=== PATIENT | male | born 1950 | race Caucasian/White ===

== ENCOUNTER 2021-10-03 08:03 | Inpatient (IN) ==
--- NOTE | 2021-09-12 11:50 | PAT Medication Instructions ---
Medication Instructions Date of Service September 12, 2021 Home Medications alprazolam 0.5 mg tablet (Xanax) 0.5 mg PO HS atorvastatin 80 mg tablet (Lipitor) 80 mg PO HS citalopram 20 mg tablet (Celexa) 20 mg PO HS coQ10 (ubiquinol) 200 mg capsule 200 mg PO QAM lisinopril 10 mg tablet 10 mg PO HS mirtazapine 30 mg tablet 30 mg PO HS multivitamin 1 tab PO QAM ropinirole 2 mg tablet 2 mg PO HS rosuvastatin 40 mg tablet (Crestor) 40 mg PO HS tamsulosin 0.4 mg capsule 0.4 mg PO HS STOP taking 2 weeks before surgery coQ10 (ubiquinol) 200 mg capsule 200 mg PO QAM DO NOT take the morning of surgery multivitamin 1 tab PO QAM Take evening before surgery alprazolam 0.5 mg tablet (Xanax) 0.5 mg PO HS atorvastatin 80 mg tablet (Lipitor) 80 mg PO HS citalopram 20 mg tablet (Celexa) 20 mg PO HS lisinopril 10 mg tablet 10 mg PO HS mirtazapine 30 mg tablet 30 mg PO HS ropinirole 2 mg tablet 2 mg PO HS rosuvastatin 40 mg tablet (Crestor) 40 mg PO HS tamsulosin 0.4 mg capsule 0.4 mg PO HS OTHERWISE NOTHING TO EAT OR DRINK AFTER MIDNIGHT: Other Notes If you have any questions please call us at [phone] or [phone] or [phone] or [phone]
--- NOTE | 2021-09-20 09:31 | Anesthesiology Consultation ---
Date of Service September 20, 2021 Assessment & Plan (1) Encounter for pre-operative examination: Chart Review Chart Review: Acceptable Risk for Surgery (pending preop Covid testing results ) and Patient seen in Pre Admission Testing Pt initially scheduled for surgery 09/30/21- currently surgery postponed due to Covid surge- no new surgery date at this time. Surgeon's office will follow up with patient when able to be rescheduled. Pt voices understanding. Pt did have labs done in PAT- willing to get repeated if surgery rescheduled after 60 days. Per PAT appt on 09/20/21, patient denies any recent travel or large group activities. No known Covid positive contacts or Covid related symptoms. No known Covid infection in the past 90 days. Pt is fully vaccinated for Covid. Preop Covid testing will be done 2-4 days prior to surgery date when rescheduled = will await results. Educated on importance of self quarantining, social distancing and wearing mask in public for the patient one week prior to surgery and after Covid testing done Teaching & Discussion Pre-Anesthesia Teaching/Discussion Notes: Instructed NPO after midnight before surgery,except medications with 15 cc of water. Medication instructions provided according to the PAT guidelines. History Surgery Operation Date: 09/30/21 10:05 Proposed Procedures p L2-S1 Decompression and Fusion - Rex Elizondo DO Height/Weight Height: 5 ft 9 in Weight: 82.8 kg Allergies Allergy/AdvReac Type Severity Reaction Status Date / Time No Known Allergies Allergy Verified 09/12/21 08:38 Medications Home Medications Medication Instructions Recorded Confirmed Last Taken alprazolam 0.5 mg tablet (Xanax) 0.5 mg PO HS 09/12/21 09/12/21 Unknown atorvastatin 80 mg tablet (Lipitor) 80 mg PO HS 09/12/21 09/12/21 Unknown citalopram 20 mg tablet (Celexa) 20 mg PO HS 09/12/21 09/12/21 Unknown coQ10 (ubiquinol) 200 mg capsule 200 mg PO QAM 09/12/21 09/12/21 Unknown lisinopril 10 mg tablet 10 mg PO HS 09/12/21 09/12/21 Unknown mirtazapine 30 mg tablet 30 mg PO HS 09/12/21 09/12/21 Unknown multivitamin 1 tab PO QAM 09/12/21 09/12/21 Unknown ropinirole 2 mg tablet 2 mg PO HS 09/12/21 09/12/21 Unknown rosuvastatin 40 mg tablet (Crestor) 40 mg PO HS 09/12/21 09/12/21 Unknown tamsulosin 0.4 mg capsule 0.4 mg PO HS 09/12/21 09/12/21 Unknown Past Medical History Medical History Anxiety and depression BPH (benign prostatic hyperplasia) Degenerative disc disease Hx of skin cancer, basal cell S/p removed Hyperlipidemia Hypertension Post traumatic stress disorder Restless leg syndrome Stable with medication Sleep apnea MILD/NO DEVICE Spinal stenosis Exercise / Class Metabolic Activity II 4-5 Yardwork/Stairs/Walk up hill (one flight of stairs- no chest pain or SOB ) Past Family History Family History Father Family hx of colon cancer Past Surgical History Surgical History Family history of reaction to anesthesia DAUGHTER>NAUSEA History of colonoscopy History of esophagogastroduodenoscopy (EGD) History of repair of rotator cuff RT SIDE + BICEP TENDON REPAIR (X 3) LEFT SIDE History of tonsillectomy and adenoidectomy Hx of vasectomy S/P LASIK surgery of both eyes [place] teeth removed Past Anesthesia History No Hx of Anesthesia Complications and No Family Hx of Anesthesia Complications (with exception to daughter- PONV ) History of PONV No Hx of PONV and No Hx of Motion Sickness Social History Smoking Status: Former smoker tobacco type: cigarettes Do You Dip or Chew Tobacco: No Smoking End Date: 1979 Hx Alcohol Use: Yes Alcohol type: beer and hard liquor alcohol intake frequency: a few times a month substance use type: does not use Review of Systems Patient denies chest pain, shortness of breath, dyspnea on exertion, reflux, cough, wheezing, palpitations. No hx of seizures, stroke, [place]. No hx of blood clots or blood transfusions Physical Exam Vital Signs VITALS BP 127/76 P 70 TEMP 97.6 SP02 95% RESP 16 Constitutional no acute distress ENMT Mouth: no TMJ clicking Thyromental Distance: > or= 3.5 Finger Breadths (4.0) Mallampati Class: II Permanent bridge on top front and bottom side Neck neck extension not limited Respiratory normal respiratory effort; no respiratory distress Auscultation: lungs clear to auscultation bilaterally; no wheezes Cardiovascular Rate/Rhythm: regular rate and regular rhythm Heart Sounds: no murmur Vessels: no carotid bruit Musculoskeletal Spine: no pain with cervical ROM Extremities: extremities normal to inspection Psychiatric Orientation: alert Lab Results Anesthesia Preop Results Results Anesthesia Widget: WBC 3.57 K/uL (4.8-10.8) L 09/20/21 Hgb 14.9 g/dL (14.0-18.0) 09/20/21 Hct 43.1 % (42-52) 09/20/21 Plt 155 K/uL (130-400) 09/20/21 Na 137 mmol/L (136-145) 09/20/21 K 4.4 mmol/L (3.5-5.1) 09/20/21 Cl 107 mmol/L (98-107) 09/20/21 CO2 26 mmol/L (21-32) 09/20/21 BUN 24 mg/dl (7-18) H 09/20/21 Creat 1.24 mg/dl (0.6-1.4) 09/20/21 Glucose Level 101 mg/dl (70-99) H 09/20/21 PT 10.1 Seconds (9.0-12.0) 09/20/21 PTT 27.3 Seconds (21.0-31.0) 09/20/21 INR 1.0 (0.9-1.1) 09/20/21 Urine Color Yellow 09/20/21 Urine Appearance Clear (Clear) 09/20/21 Urine pH 5.5 (4.5-7.5) 09/20/21 Urine Specific [place] 1.017 (1.000-1.030) 09/20/21 Urine Protein Negative (Negative) 09/20/21 Urine Glucose (UA) Negative (Negative) 09/20/21 Urine Ketones Negative (Negative) 09/20/21 Urine Blood Negative (Negative) 09/20/21 Urine Nitrite Negative (Negative) 09/20/21 Urine Bilirubin Negative (Negative) 09/20/21 Urine Urobilinogen Negative (Negative) 09/20/21 Urine Leukocyte Esterase Trace (Negative) H 09/20/21 Urine WBC (Auto) 1-5 /hpf (0-5) 09/20/21 Urine RBC (Auto) 0-4 /hpf (0-4) 09/20/21 Urine Hyaline Casts (Auto) 0 /lpf (0-5) 09/20/21 Urine Epithelial Cells (Auto) 0-5 /lpf (0-5) 09/20/21 Urine Bacteria (Auto) Negative (Negative) 09/20/21 Blood Type O Negative 09/20/21 Antibody Screen NEGATIVE 09/20/21 Testing Electrocardiogram Date: 09/20/21 Findings: + NSR @ (65bpm) Normal EKG per cardio Chest X-Ray Date: 09/20/21 Findings: + NAD
[~2021-10-03 08:03] MED LIST: ACETAMINOPHEN 500 MG TAB PO SCH; CeleBREX 200 MG CAP PO SCH; GABAPENTIN 300 MG CAP PO SCH; LR 15ML/HR IV SCH; ceFAZolin 2000MG 2,000 MG/15 ML SYR IV SCH
[2021-10-03] MEDS ORDERED: ONDANSETRON INJ 2 MG/ML 2 ML VIAL ONE (09:08)
[2021-10-03] MEDS ORDERED: DEXAMETHASONE SOD INJ 4 MG/ML VIAL ONE (09:08)
[2021-10-03] MEDS ORDERED: PROPOFOL IV EMULSION 10 MG/ML 20 ML VIAL IV ONE (09:08)
[2021-10-03] MEDS ORDERED: LIDOCAINE 2% 2 ML VIAL/AMP(20MG/ML) INFIL ONE (09:08)
[2021-10-03] MEDS ORDERED: fentaNYL citrate 100 MCG/2 ML VIAL ONE ×2 (09:09→13:47)
[2021-10-03] MEDS ORDERED: MIDAZOLAM HCL 1 MG/ML 2ML VIAL ONE (09:09)
[2021-10-03] MEDS ORDERED: HYDROmorphone INJ 1 MG/ML SYRINGE IV PRN ×2 (09:33→15:57)
[2021-10-03] MEDS ORDERED: ATROPINE SULFATE 0.1 MG/ML 10ML SYR IV PRN (09:33)
[2021-10-03] MEDS ORDERED: ePHEDrine sulfate 50 MG/ML AMP IV PRN (09:33)
[2021-10-03] MEDS ORDERED: ONDANSETRON INJ 2 MG/ML 2 ML VIAL IV PRN ×2 (09:33→15:57)
--- NOTE | 2021-10-03 09:45 | History & Physical Bridge Note ---
Date of Service October 03, 2021 History & Physical Bridge Note I have examined the patient, reviewed the History & Physical and in the interval since the performance of the History & Physical I have noted the following changes of clinical significance: no changes noted
--- NOTE | 2021-10-03 09:47 | History & Physical Report ---
Date of Service October 03, 2021 Assessment & Plan (1) Neurogenic claudication due to lumbar spinal stenosis: Plan: L2-S1 decompression fusion History of Present Illness Chief Complaint: Back and bilateral leg pain Primary Care Provider: Renuka Khoury This is a 70-year-old male who presents with chronic system back and right leg pain. Failing course of nonoperative care is here for surgical invention. Allergies Allergy/AdvReac Type Severity Reaction Status Date / Time No Known Allergies Allergy Verified 10/03/21 08:42 Home Medications Medication Instructions Recorded Confirmed Type alprazolam 0.5 mg tablet (Xanax) 0.5 mg PO HS 09/12/21 10/03/21 History atorvastatin 80 mg tablet (Lipitor) 80 mg PO HS 09/12/21 10/03/21 History citalopram 20 mg tablet (Celexa) 20 mg PO HS 09/12/21 10/03/21 History coQ10 (ubiquinol) 200 mg capsule 200 mg PO QAM 09/12/21 10/03/21 History lisinopril 10 mg tablet 10 mg PO HS 09/12/21 10/03/21 History mirtazapine 30 mg tablet 30 mg PO HS 09/12/21 10/03/21 History multivitamin 1 tab PO QAM 09/12/21 10/03/21 History ropinirole 2 mg tablet 2 mg PO HS 09/12/21 10/03/21 History rosuvastatin 40 mg tablet (Crestor) 40 mg PO HS 09/12/21 09/12/21 History tamsulosin 0.4 mg capsule 0.4 mg PO HS 09/12/21 09/12/21 History Past Med/Surg History Medical History Anxiety and depression BPH (benign prostatic hyperplasia) Degenerative disc disease Hx of skin cancer, basal cell S/p removed Hyperlipidemia Hypertension Post traumatic stress disorder Restless leg syndrome Stable with medication Sleep apnea MILD/NO DEVICE Spinal stenosis Surgical History Family history of reaction to anesthesia DAUGHTER>NAUSEA History of colonoscopy History of esophagogastroduodenoscopy (EGD) History of repair of rotator cuff RT SIDE + BICEP TENDON REPAIR (X 3) LEFT SIDE History of tonsillectomy and adenoidectomy Hx of vasectomy S/P LASIK surgery of both eyes [place] teeth removed Family History Father Family hx of colon cancer Social History Smoking Status: Former smoker Smoking End Date: 1979; Second Hand Exposure: No; Do You Dip or Chew Tobacco: No; Hx Alcohol Use: Yes Alcohol type: beer and hard liquor Preferred Language: [place] Tearoom Host Required: No Beliefs That Will Affect Care: None Current Living Situation: Spouse Feels Safe at Home: Yes Safety Concerns: Feels Safe At This Time Assistive Devices: Glasses and Hearing Aid - Bilateral Assistive Devices Comment: READING GLASSES, HEARING AIDS ONLY WHEN WORKING Physical Exam Physical Exam: Patient is alert and oriented Heart regular in rhythm Lungs clear Results & Data ([facility]) Vital Signs (Past 12 Hours) Vital Signs Temp Pulse Resp BP Pulse Ox 10/03/21 08:44 36.5 C 71 18 121/75 99
[2021-10-03] MEDS ORDERED: BUPIVACAINE 0.5 % 5 MG/1 ML MPF 30ML VIAL ONE (10:07)
[2021-10-03] MEDS ORDERED: EPINEPHrine INJ 1 MG/ML AMP ONE (10:07)
[2021-10-03] MEDS ORDERED: FLOSEAL HEMOSTATIC MATRIX 10ML TOP ONE (10:59)
[2021-10-03] MEDS ORDERED: KETAMINE 50 MG/5 ML SYRINGE ONE (11:27)
[2021-10-03] MEDS ORDERED: PHENYLEPHRINE HCL 10 MG/ML VIAL ONE (12:36)
[2021-10-03] MEDS ORDERED: NEOSTIGMINE METHYLSULFATE 1 MG/ML 10ML VIAL ONE (12:36)
[2021-10-03] MEDS ORDERED: PHENYLEPHRINE 100MCG/ML 5ML SYR ONE (12:36)
[2021-10-03] MEDS ORDERED: ROCURONIUM BROMIDE 10 MG/ML 5 ML VIAL IV ONE (12:36)
[2021-10-03] MEDS ORDERED: GLYCOPYRROLATE 0.2 MG/ML VIAL ONE (12:36)
[2021-10-03] MEDS ORDERED: ePHEDrine sulfate 50 MG/ML SYR ONE (12:36)
[2021-10-03] MEDS ORDERED: ALBUMIN HUMAN 5% 12.5 GM/250 ML VIAL IV ONE (13:44)
--- NOTE | 2021-10-03 13:47 | Operative Report ---
Post Operative Report Pre & Post Diagnosis Operation Date: 10/03/21 10:05 Pre-Op Diagnosis: Spinal Stenosis, Lumbar Region with Neurogenic Claudication Post-Op Diagnosis: Spinal Stenosis, Lumbar Region with Neurogenic Claudication I identified the patient and participated in the time-out.: Yes Procedure Operation Date: 10/03/21 10:05 Actual Procedures #1 lumbar decompression bilateral medial facetectomies and foraminotomies L1-L2, L2-L3, L3-L4, L4-5 and L5-S1. #2 posterior spinal fusion L1-S1. #3 placed posterior segmental instrumentation L1-S1. #4 interbody fusion L3-L4 L4-L5 per #5 placement peek cage 12 x 26 mm at L3-L4 and 10 x 26 mm at L4-L5. #6 placement locally harvested morselized autograft in the posterior gutters. #7 placement infuse collagen sponge, and master graft in the posterior lateral gutters and I factor interbody space. Surgeon Rex Elizondo, DO Cad [employer] Programmer Colby Jama Estimated Blood Loss 700 Findings Consistent with Post-Op Diagnosis Specimens None Indications This is a 70-year-old male who presents with above-mentioned diagnosis after failing course of nonoperative care is here for the above-mentioned seizure. Description of Procedure Patient was met with identified informed consent obtained. Patient was then taken to the operative suite underwent a patient placed in a prone position the Dante table atop Roberto frame. All bony prominences well-padded eyes inspected to ensure no external pressure placed upon the. This point the lumbar spine was prepped and draped in a normal sterile fashion. Sharp dissection with the assistance of Bovie cautery was performed down to and exposing the lamina and transverse processes of L1-L2 L3-L4-L5 and sacral ala bilaterally. From a caudal cephalad fashion complete laminectomy of L5 L4 L3 L2 partial laminectomy L1 was performed including bilateral medial facetectomies and foraminotomies addressing severe spinal stenosis. Pedicle screws were then placed in L1-L2 L3-L4-L5 and S1 bilaterally with assistance of fluoroscopy and the properly sized jose elias placed. Bilateral transforaminal portion left complete discectomy of L for L5 was performed endplates curetted to subcortical bleeding bone and a 10 x 26 mm peek cage with I factor tapped in position. Then proceeded to L3-L4 and again by way of a transforaminal approach on the left complete discectomy was performed endplates curetted to subcortical bleeding bone and a 12 x 26 mm peek cage filled with I factor tapped in position. The rods were then locked in final position bilaterally. The transverse processes of L1-L2 L3-L4-L5 and the sacral ala were burred to subcortical bleeding bone. Infuse collagen sponge, and master graft local autograft was placed in the posterior lateral gutters. 15 round FABIANA drain inserted. The incision was then closed with 1 Vicryl in the fascia 2-0 Vicryl subcutaneously and 4 Monocryl for final skin closure. Steri- Strips dressings placed. Patient will continue PACU stable condition. Please note spinal cord monitoring was last that the procedure no changes noted. Lastly Colby Jama was present at the entire surgery The patient positioning complex portions of the surgery and final skin closure. I attest to the content of the Intraoperative Record and any orders documented therein. Any exceptions are noted below.
--- NOTE | 2021-10-03 14:09 | Fluoroscopy Report ---
FL lumbar spine 2-3V HISTORY: 70 years-old Male L2-S1 DECOMPRESSION/FUSION/INTERBODY COMPARISON: Chest radiographs 09/20/2021 TECHNIQUE: 4 spot fluoroscopic images of the lumbar spine were obtained utilizing 60.8 seconds fluoro scopy time FINDINGS: Posterior interbody jose elias and screw fusion hardware is noted at what appears to be the L1-S1 levels wit h discectomy changes at L3-L4 and L4-L5. The hardware appears intact. Multilevel spondylitic spurring . No definite expected opaque foreign body identified. No acute fracture seen. IMPRESSION: Fluoroscopic assistance as above. ACT 112: Negative or not required by law. The above report was generated using voice recognition software. It may contain grammatical, syntax o r spelling errors. Electronically signed by: Bjorn Smith M.D. 10/03/2021 2:07 PM
[2021-10-03] MEDS: fentaNYL citrate 100 MCG/2 ML VIAL IV PRN ×3 (14:39→15:06)
--- NOTE | 2021-10-03 15:03 | Anesthesiology Progress Note ---
Date of Service October 03, 2021 Anesthesia Post Procedure Vital Signs Vital Signs: Temp Pulse Pulse Resp BP Pulse Ox 10/03/21 14:55 97.9 F 90 20 94/67 L 95 10/03/21 14:45 81 20 101/64 98 10/03/21 14:35 75 18 110/67 99 10/03/21 14:25 80 18 107/61 98 10/03/21 14:18 97.3 F L 86 16 113/72 99 10/03/21 08:44 97.7 F 71 18 121/75 99 Pain Intensity Lower Back: Pain Intensity: 4 Transfer of Care Handoff Completed per policy Notes Mental Status: alert / awake / arousable and participated in evaluation Patient Amnestic to Procedure: Yes Nausea / Vomiting: adequately controlled Pain: adequately controlled Airway Patency, RR, SpO2: stable & adequate BP & HR: stable & adequate Hydration State: stable & adequate Anesthetic Complications: no major complications apparent and Pt Satisfied with anesthetic care
[2021-10-03] MEDS ORDERED: traMADol HCL 50 MG TABLET PO PRN (15:57)
[2021-10-03] MEDS ORDERED: DO NOT ADMINISTER PNEUMOCOCCAL VACCINE PRN (15:57)
[2021-10-03] MEDS ORDERED: ACETAMINOPHEN 1,000 MG/100 ML VIAL IV PRN (15:57)
[2021-10-03] MEDS ORDERED: diphenhydrAMINE Capsule 25 MG CAP PO PRN (15:57)
[2021-10-03] MEDS ORDERED: ALUMINUM/MAGNESIUM SUSP 30 ML UDC PO PRN (15:57)
[2021-10-03] MEDS ORDERED: FAMOTIDINE 20 MG TAB PO PRN (15:57)
[2021-10-03] MEDS ORDERED: SOD PHOSPHATE/SOD BIPHOSPHATE ENEMA 132 ML BTL PR PRN (15:57)
[2021-10-03] MEDS ORDERED: bisacodyL 10 MG SUPP PR PRN (15:57)
[2021-10-03] MEDS ORDERED: ONDANSETRON 4 MG OD TAB PO PRN (15:57)
[2021-10-03] MEDS ORDERED: LORazepam 0.5 MG/1 ML VIAL IV PRN (15:57)
[2021-10-03] MEDS ORDERED: MAGNESIUM HYDROXIDE SUSP 30 ML UDC PO PRN (15:57)
[2021-10-03] MEDS ORDERED: LORazepam 0.5 MG TAB PO PRN (15:57)
[2021-10-03] MEDS ORDERED: hydrOXYzine HCl 25 MG TAB PO PRN (15:57)
[2021-10-03] MEDS ORDERED: HYDROmorphone INJ 0.5 MG/0.5 ML SYR IV PRN (15:57)
[2021-10-03] MEDS ORDERED: PROMETHAZINE HCL 12.5 MG in SODIUM CHLORIDE 0.9% 50 ML IV PRN (15:57)
[2021-10-03] MEDS ORDERED: ACETAMINOPHEN 500 MG TAB PO PRN (15:57)
[2021-10-03] MEDS ORDERED: DO NOT ADMINISTER FLU VACCINE PRN (15:57)
[2021-10-03] MEDS ORDERED: NALOXONE HCL 0.4 MG/1 ML VIAL/CARP IV PRN (15:57)
[2021-10-03] MEDS ORDERED: METOCLOPRAMIDE HCL INJ 5 MG/ML 2 ML VIAL IV PRN (15:57)
--- NOTE | 2021-10-03 16:56 | Consultation ---
Date of Consultation October 03, 2021 Assessment & Plan (1) Neurogenic claudication due to lumbar spinal stenosis: (2) Hyperlipidemia: This is a 70-year-old male who has significant past medical history of HTN, HLD, RLS, BPH, depression with anxiety who presented for elective lumbar procedure by Dr. Elizondo. Actual Procedures #1 lumbar decompression bilateral medial facetectomies and foraminotomies L1-L2, L2-L3, L3-L4, L4-5 and L5-S1. #2 posterior spinal fusion L1-S1. #3 placed posterior segmental instrumentation L1-S1. #4 interbody fusion L3-L4 L4-L5 per #5 placement peek cage 12 x 26 mm at L3-L4 and 10 x 26 mm at L4-L5. #6 placement locally harvested morselized autograft in the posterior gutters. #7 placement infuse collagen sponge, and master graft in the posterior lateral gutters and I factor interbody space. POD# 0 EBL: 700ml; EL drain 315ml tolerated procedure well pain/wound management per ortho activity and therapy as directed by ortho encourage incentive spirometry, wean O2 as able monitor hgb (pre op 14.9) given EBL check cbc, bmp now HYPOTENSION/TACHYCARDIA post op Pt BP on lower side with mild tachycardia - may be hypovolemia in setting of blood loss, poor intake vs narcotics, he is otherwise asymptomatic. Will check cbc, bmp. BP 98/64, HR 101 - give 500ml NS bolus x 1 now, await labs HTN post op BP on lower side s/p pain meds hold lisinopril resume when able HLD continue statin DEPRESSION WITH ANXIETY continue xanax, celexa RLS continue requip BPH continue flomax DVT ppx: SCD/TEDS per ortho Dispo: per surgery PCP: LEIGHA Cruz FULL CODE Pt was seen and examined in collaboration with Dr. Urban, please see addendum Thank you for this consultation. We will follow the patient with you during their hospital stay. You can reach a member of the [facility] Hospitalist Team 04/05 via hospitalist role on tiger text. Supervising Physician Co-Signing Physician Notes Patient seen and examined by me, care coordinated with Agusto Ramirez PA-C, please refer to her note above for further detail. Pt is a 70 yo male w/ HTN, HLD, RLS, BPH, depression with anxiety who is currently s/p lumbar spine surgery by Dr. Elizondo. He underwent a L2-S1 lumbar decompression fusion. His EBL was 700 mL. Postoperatively he complains of lower lumbar / incisional pain, but without radicular symptoms. Postoperatively, patient slightly hypotensive, received a small normal saline bolus. His hypertension is usually controlled with lisinopril. He also reports that his blood pressure is usually well controlled, w/ systolic blood pressure around 120, he also reports to be quite an active person. Currently he is alert oriented answering questions appropriately. Lung sounds clear to auscultation b/l w/o wheezing, rhonchi or crackles. Heart sounds regular. Abdomen soft nontender nondistended. Patient has no sensory loss in his lower extremities, able to move lower extremities while lying in bed. Continue close hemodynamic monitoring, H&H. Temi Urban MD History of Present Illness Requesting Physician: Dr. Elizondo Reason for Consultation: Post op medical management Attending Physician: Rex Elizondo DO History of Present Illness This is a 70-year-old male who has significant past medical history of HTN, HLD, RLS, BPH, depression with anxiety who presented for elective lumbar procedure by Dr. Elizondo. He underwent a L2-S1 lumbar decompression fusion. His EBL was 700 mL. Postoperatively he complains of lower lumbar pain, but without radicular symptoms. He denies any fever, chills, sweats, lightheadedness, dizziness, chest pain, shortness of breath, nausea, vomiting, abdominal pain. Prior to procedure he did not have any difficulty urinating or moving bowels. In the evening he would have difficulty starting urine stream. His appetite has been good. [facility] [place] [place] His HTN is well controlled on lisinopril. He also has HLD controlled with lipitor and CoQ10. He does have underlying depression controlled on meds. 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 Allergies Allergy/AdvReac Type Severity Reaction Status Date / Time No Known Allergies Allergy Verified 10/03/21 08:42 Home Medications Medication Instructions Recorded Confirmed Type alprazolam 0.5 mg tablet (Xanax) 0.5 mg PO HS 09/12/21 10/03/21 History atorvastatin 80 mg tablet (Lipitor) 80 mg PO HS 09/12/21 10/03/21 History citalopram 20 mg tablet (Celexa) 20 mg PO HS 09/12/21 10/03/21 History coQ10 (ubiquinol) 200 mg capsule 200 mg PO QAM 09/12/21 10/03/21 History lisinopril 10 mg tablet 10 mg PO HS 09/12/21 10/03/21 History mirtazapine 30 mg tablet 30 mg PO HS 09/12/21 10/03/21 History multivitamin 1 tab PO QAM 09/12/21 10/03/21 History ropinirole 2 mg tablet 2 mg PO HS 09/12/21 10/03/21 History tamsulosin 0.4 mg capsule 0.4 mg PO HS 09/12/21 09/12/21 History oxycodone 5 mg tablet 5 mg PO Q6H PRN #30 tab 10/03/21 Rx tramadol 50 mg tablet 50 mg PO Q6H PRN #30 tab 10/03/21 Rx Patient History Medical History (Updated 10/03/21 @ 16:51 by Serene Ramirez PA-C) Anxiety and depression BPH (benign prostatic hyperplasia) Degenerative disc disease Hx of skin cancer, basal cell S/p removed Hyperlipidemia Hypertension Post traumatic stress disorder Restless leg syndrome Stable with medication Sleep apnea MILD/NO DEVICE Spinal stenosis Surgical History Family history of reaction to anesthesia DAUGHTER>NAUSEA History of colonoscopy History of esophagogastroduodenoscopy (EGD) History of repair of rotator cuff RT SIDE + BICEP TENDON REPAIR (X 3) LEFT SIDE History of tonsillectomy and adenoidectomy Hx of vasectomy S/P LASIK surgery of both eyes [place] teeth removed Family History Father Family hx of colon cancer Mother CHF (congestive heart failure) Social History Smoking Status: Former smoker Smoking End Date: 1979; Second Hand Exposure: No; Do You Dip or Chew Tobacco: No; Hx Alcohol Use: Yes Alcohol type: beer and hard liquor Preferred Language: [place] Transfer Car Operator Required: No Beliefs That Will Affect Care: None Current Living Situation: Spouse Feels Safe at Home: Yes Safety Concerns: Feels Safe At This Time Assistive Devices: Walker Assistive Devices Comment: READING GLASSES, HEARING AIDS ONLY WHEN WORKING Review of Systems Review of Systems: All systems reviewed & are unremarkable except as noted in HPI & below Physical Exam Physical Exam: Constitutional: WD/WN, M, vitals as above, NAD, lying in bed, pleasant, conversing easily Head: Normocephalic, Atraumatic Eyes: PERRL, conjunctivae normal, anicteric sclerae ENMT: external ear and nose normal, oropharynx normal Neck: trachea midline, no thyromegaly normal visual inspection Respiratory: normal respiratory effort, lungs clear to auscultation, no wheeze, rales, rhonchi. Normal insp/exp effort, no accessory muscle use Cardiovascular: RRR, no murmur, no edema Vessels: no JVD or carotid bruit Chest: normal inspection of chest Abdomen: normal bowel sounds, soft, nontender, no hepatosplenomegaly Musculoskeletal: no cyanosis or clubbing, AROM x 4, El drain with serosanguineous drainage Skin: no rashes, warm and dry normal turgor Neurologic: PERRL, EOMI, accommodation nl, no face palsy, no dysarthria CN's II-XI intact bilaterally and moves all extremities Psychiatric: A+Ox3, euthymic affect : deferred Results & Data ([facility]) Vital Signs (Past 12 Hours) Vital Signs Temp Pulse Pulse Resp BP Pulse Ox 10/03/21 16:35 94 H 18 99/64 L 98 10/03/21 16:05 36.8 C 87 12 97/58 L 97 10/03/21 15:35 95 H 20 105/64 92 10/03/21 15:25 89 19 98/71 L 95 10/03/21 15:15 91 H 24 103/56 L 96 10/03/21 15:05 89 18 124/70 94 10/03/21 14:55 36.6 C 90 20 94/67 L 95 10/03/21 14:45 81 20 101/64 98 10/03/21 14:35 75 18 110/67 99 10/03/21 14:25 80 18 107/61 98 10/03/21 14:18 36.3 C L 86 16 113/72 99 10/03/21 08:44 36.5 C 71 18 121/75 99 Laboratory Results Pre op lab 09/20/21 wbc 3.57, h/h 14.9 and 43.1, plt 155 BMP: Na 137, K 4.4, Chl 107, bun 24, cr 1.24 Diagnostic Findings Lumbar Spine X-Ray 10/03/21 11:55 FL lumbar spine 2-3V HISTORY: 70 years-old Male L2-S1 DECOMPRESSION/FUSION/INTERBODY COMPARISON: Chest radiographs 09/20/2021 TECHNIQUE: 4 spot fluoroscopic images of the lumbar spine were obtained utilizing 60.8 seconds fluoroscopy time FINDINGS: Posterior interbody jose elias and screw fusion hardware is noted at what appears to be the L1-S1 levels with discectomy changes at L3-L4 and L4-L5. The hardware appears intact. Multilevel spondylitic spurring. No definite expected opaque foreign body identified. No acute fracture seen. IMPRESSION: Fluoroscopic assistance as above. ACT 112: Negative or not required by law. The above report was generated using voice recognition software. It may contain grammatical, syntax or spelling errors. Electronically signed by: Bjorn Smith M.D. 10/03/2021 2:07 PM Pre op CXR 09/20/21: No acute abnormality ECG Rate (beats per minute): 65 Rhythm: normal sinus
[2021-10-03] MEDS ORDERED: SODIUM CHLORIDE 0.9% 1000ML 500 ML IV ONE (17:05)
[2021-10-03 17:14] LABS: Basophils # (auto) 0.01 K/uL (0-0.2); Basophils % (auto) 0.2 %; Eosinophils # (auto) 0.01 K/uL (0-0.5); Eosinophils % (auto) 0.2 %; Hematocrit (blood only) 35.1 % (42-52); Hemoglobin 12.1 g/dL (14.0-18.0); Immature Granulocytes # (auto) 0.03 K/uL (0.00-0.02); Immature Granulocytes % (auto) 0.5 %; Lymphocytes # (auto) 0.49 K/uL (1.2-3.4); Lymphocytes % (auto) 7.9 %; Mean Corpuscular Hemoglobin 31.8 pg (25-34); Mean Corpuscular Volume 92.4 fL (80-100); Mean Platelet Volume 8.1 fL (7.4-10.4); Monocytes # (auto) 0.14 K/uL (0.11-0.59); Monocytes % (auto) 2.3 %; Neutrophils % (auto) 88.9 %; Platelet Count 119 K/uL (130-400); RDW Coefficient of Variation 13.1 % (11.5-14.5); RDW Standard Deviation 43.9 fL (36.4-46.3); White Blood Count 6.18 K/uL (4.8-10.8)
[2021-10-03 17:19] LABS: Mean Corpuscular Hgb Conc 34.5 g/dL (32-36)
[2021-10-03 17:34] LABS: Calcium 7.9 mg/dl (8.5-10.1); Creatinine Clr Calc Pharmacy 50.9 ml/min; Est GFR (African American) 61.2 ml/min; Est GFR (Non-African American) 52.8 ml/min; Potassium 4.4 mmol/L (3.5-5.1)
[2021-10-03] MEDS: LACTATED RINGER'S 1,000 ML IV SCH (17:56)
[2021-10-03] MEDS: CITALOPRAM 20 MG TAB PO SCH (20:59)
[2021-10-03] MEDS: TAMSULOSIN HCL 0.4 MG CAP PO SCH (20:59)
[2021-10-03] MEDS: MIRTAZAPINE TAB 15 MG TAB PO SCH (20:59)
[2021-10-03] MEDS: DOCUSATE SODIUM/SENNA 50/8.6MG TAB PO SCH (20:59)
[2021-10-03] MEDS: rOPINIRole HCL 2 MG TABLET PO SCH (20:59)
[2021-10-03] MEDS: ATORVASTATIN 40 MG TAB PO SCH (20:59)
[2021-10-03] MEDS: ceFAZolin 2000MG 2,000 MG/15 ML SYR IV SCH (20:59)
[2021-10-03] MEDS ORDERED: ROSUVASTATIN CALCIUM 20 MG TAB PO SCH (21:00)
[2021-10-03] MEDS ORDERED: lisinopril 10 MG TAB PO SCH (21:00)
[2021-10-03] MEDS: ALPRAZolam 0.5 MG TABLET PO SCH (21:02)
[2021-10-03] MEDS: oxyCODONE HCL IR 5 MG TAB (IMMEDIATE RELEASE) PO PRN (21:02)
[2021-10-04] MEDS: LACTATED RINGER'S 1,000 ML IV SCH (01:58)
[2021-10-04] MEDS: ceFAZolin 2000MG 2,000 MG/15 ML SYR IV SCH (02:09)
[2021-10-04] MEDS: POLYETHYLENE (MIRALAX) 17 GM PACK PO SCH ×3 (06:00→19:24)
[2021-10-04 06:58] LABS: Basophils # (auto) 0.01 K/uL (0-0.2); Basophils % (auto) 0.1 %; Hematocrit (blood only) 31.7 % (42-52); Immature Granulocytes # (auto) 0.02 K/uL (0.00-0.02); Immature Granulocytes % (auto) 0.3 %; Lymphocytes % (auto) 21.6 %; Mean Corpuscular Hemoglobin 32.2 pg (25-34); Mean Corpuscular Hgb Conc 34.7 g/dL (32-36); Mean Corpuscular Volume 92.7 fL (80-100); Mean Platelet Volume 8.4 fL (7.4-10.4); Monocytes # (auto) 0.61 K/uL (0.11-0.59); Monocytes % (auto) 8.8 %; Neutrophils # (auto) 4.79 K/uL (1.4-6.5); Neutrophils % (auto) 69.2 %; Platelet Count 144 K/uL (130-400); RDW Coefficient of Variation 13.4 % (11.5-14.5); RDW Standard Deviation 44.9 fL (36.4-46.3); Red Blood Count 3.42 M/uL (4.7-6.1); White Blood Count 6.93 K/uL (4.8-10.8)
[2021-10-04 07:33] LABS: Calcium 8.1 mg/dl (8.5-10.1); Creatinine Clr Calc Pharmacy 51.3 ml/min; Est GFR (African American) 61.8 ml/min; Est GFR (Non-African American) 53.3 ml/min; Potassium 4.3 mmol/L (3.5-5.1)
[2021-10-04 07:43] LABS: Estimated Average Glucose 108 mg/dl; Hemoglobin A1C 5.4 % (4.5-5.6)
--- NOTE | 2021-10-04 08:48 | Hospitalist Progress Note ---
Date of Service October 04, 2021 Assessment & Plan (1) Neurogenic claudication due to lumbar spinal stenosis: (2) Hyperlipidemia: Plan: This is a 70-year-old male who has significant past medical history of HTN, HLD, RLS, BPH, depression with anxiety who presented for elective lumbar procedure by Dr. Elizondo. Actual Procedures #1 lumbar decompression bilateral medial facetectomies and foraminotomies L1-L2, L2-L3, L3-L4, L4-5 and L5-S1. #2 posterior spinal fusion L1-S1. #3 placed posterior segmental instrumentation L1-S1. #4 interbody fusion L3-L4 L4-L5 per #5 placement peek cage 12 x 26 mm at L3-L4 and 10 x 26 mm at L4-L5. #6 placement locally harvested morselized autograft in the posterior gutters. #7 placement infuse collagen sponge, and master graft in the posterior lateral gutters and I factor interbody space. POD# 1 tolerated procedure well Mild hypotension post-op, resolved w/ small NS bolus pain/wound management per ortho activity and therapy as directed by ortho encourage incentive spirometry, wean O2 as able monitor hgb (pre op 14.9) given EBL check cbc, bmp now Acute blood loss anemia (post-op)/dilutional Expected No need for blood transfusion Pt denies any symptoms such as dizziness, shortness of breath, chest pain Current hemoglobin 11 Continue to monitor H&H HYPOTENSION/TACHYCARDIA post op Pt BP on lower side with mild tachycardia - may be hypovolemia in setting of blood loss, poor intake vs narcotics, he is otherwise asymptomatic. Will check cbc, bmp. resolved w/ small NS bolus HTN post op BP on lower side s/p pain meds hold lisinopril resume when able HLD continue statin DEPRESSION WITH ANXIETY continue xanax, celexa RLS continue requip BPH continue flomax DVT ppx: SCD/TEDS per ortho Dispo: per surgery PCP: LEIGHA Cruz FULL CODE Thank you for this consultation. We will follow the patient with you during their hospital stay. You can reach a member of the [facility] Hospitalist Team 04/05 via hospitalist role on tiger text. Admission and Anticipated Discharge Date Admission Date: October 03, 2021 Subjective Patient seen in follow-up after lumbar surgery Currently sitting up in bed, in no acute distress Reports that he has been ambulating in hallways without much difficulty Denies any chest pain, shortness of breath, fever chills, abdominal pain, nausea or vomiting Review of Systems Review of Systems: All systems reviewed & are unremarkable except as noted in Subjective Physical Exam Physical Exam: Constitutional: WD/WN, M, in NAD Head: Normocephalic, Atraumatic Eyes: PERRL, EOMI, conjunctivae normal, anicteric sclerae ENMT: external ear and nose normal, oropharynx normal Neck: normal visual inspection Respiratory: normal respiratory effort, lungs clear to auscultation, no wheeze, rales, rhonchi Cardiovascular: RRR, no murmur, no edema Vessels: no JVD or carotid bruit Chest: normal inspection of chest Abdomen: normal bowel sounds, soft, nontender Musculoskeletal: AROM x 4, El drain with serosanguineous drainage Skin: no rashes, warm and dry normal turgor Neurologic: PERRL, EOMI, no face palsy, no dysarthria, moves all extremities Psychiatric: A+Ox3, euthymic affect Results & Data Results & Data ([facility]) Vital Signs (Past 12 Hours) Vital Signs Temp Pulse Resp BP Pulse Ox 10/04/21 02:10 36.6 C 93 H 14 108/77 93 10/03/21 21:59 36.7 C 90 16 117/61 93 Laboratory Results 10/04/21 10/04/21 10/04/21 Range/Units 06:30 06:30 06:30 WBC 6.93 (4.8-10.8) K/uL RBC 3.42 L (4.7-6.1) M/uL Hgb 11.0 L (14.0-18.0) g/dL Hct 31.7 L (42-52) % MCV 92.7 (80-100) fL MCH 32.2 (25-34) pg MCHC 34.7 (32-36) g/dL RDW Std Deviation 44.9 (36.4-46.3) fL RDW Coeff of Rod 13.4 (11.5-14.5) % Plt Count 144 (130-400) K/uL MPV 8.4 (7.4-10.4) fL Immature Gran % (Auto) 0.3 % Neut % (Auto) 69.2 % Lymph % (Auto) 21.6 % [place] % (Auto) 8.8 % Eos % (Auto) 0.0 % Baso % (Auto) 0.1 % Neut # (Auto) 4.79 (1.4-6.5) K/uL Lymph # (Auto) 1.50 (1.2-3.4) K/uL [place] # (Auto) 0.61 H (0.11-0.59) K/uL Eos # (Auto) 0.00 (0-0.5) K/uL Baso # (Auto) 0.01 (0-0.2) K/uL Immature Gran # (Auto) 0.02 (0.00-0.02) K/uL Sodium 136 (136-145) mmol/L Potassium 4.3 (3.5-5.1) mmol/L Chloride 103 (98-107) mmol/L Carbon Dioxide 25 (21-32) mmol/L Anion Gap 7.0 (3-11) BUN 22 H (7-18) mg/dl Creatinine 1.34 (0.6-1.4) mg/dl Est Cr Clr Drug Dosing 51.3 ml/min Est GFR ( Amer) 61.8 ml/min Est GFR (Non-Af Amer) 53.3 ml/min BUN/Creatinine Ratio 16.0 (10-20) Glucose 125 H (70-99) mg/dl Estimat Average Glucose 108 mg/dl Hemoglobin A1c 5.4 (4.5-5.6) % Calcium 8.1 L (8.5-10.1) mg/dl SARS-CoV-2, RNA, NAAT (NEGATIVE) Blood Type Antibody Screen Crossmatch 10/03/21 10/03/21 10/03/21 Range/Units Unknown 17:05 17:05 WBC 6.18 (4.8-10.8) K/uL RBC 3.80 L (4.7-6.1) M/uL Hgb 12.1 L (14.0-18.0) g/dL Hct 35.1 L (42-52) % MCV 92.4 (80-100) fL MCH 31.8 (25-34) pg MCHC 34.5 (32-36) g/dL RDW Std Deviation 43.9 (36.4-46.3) fL RDW Coeff of Rod 13.1 (11.5-14.5) % Plt Count 119 L (130-400) K/uL MPV 8.1 (7.4-10.4) fL Immature Gran % (Auto) 0.5 % Neut % (Auto) 88.9 % Lymph % (Auto) 7.9 % [place] % (Auto) 2.3 % Eos % (Auto) 0.2 % Baso % (Auto) 0.2 % Neut # (Auto) 5.50 (1.4-6.5) K/uL Lymph # (Auto) 0.49 L (1.2-3.4) K/uL [place] # (Auto) 0.14 (0.11-0.59) K/uL Eos # (Auto) 0.01 (0-0.5) K/uL Baso # (Auto) 0.01 (0-0.2) K/uL Immature Gran # (Auto) 0.03 H (0.00-0.02) K/uL Sodium 137 (136-145) mmol/L Potassium 4.4 (3.5-5.1) mmol/L Chloride 107 (98-107) mmol/L Carbon Dioxide 23 (21-32) mmol/L Anion Gap 7.0 (3-11) BUN 23 H (7-18) mg/dl Creatinine 1.35 (0.6-1.4) mg/dl Est Cr Clr Drug Dosing 50.9 ml/min Est GFR ( Amer) 61.2 ml/min Est GFR (Non-Af Amer) 52.8 ml/min BUN/Creatinine Ratio 17.0 (10-20) Glucose 163 H (70-99) mg/dl Estimat Average Glucose mg/dl Hemoglobin A1c (4.5-5.6) % Calcium 7.9 L (8.5-10.1) mg/dl SARS-CoV-2, RNA, NAAT NEGATIVE (NEGATIVE) Blood Type Antibody Screen Crossmatch 10/03/21 Range/Units 08:33 WBC (4.8-10.8) K/uL RBC (4.7-6.1) M/uL Hgb (14.0-18.0) g/dL Hct (42-52) % MCV (80-100) fL MCH (25-34) pg MCHC (32-36) g/dL RDW Std Deviation (36.4-46.3) fL RDW Coeff of Rod (11.5-14.5) % Plt Count (130-400) K/uL MPV (7.4-10.4) fL Immature Gran % (Auto) % Neut % (Auto) % Lymph % (Auto) % [place] % (Auto) % Eos % (Auto) % Baso % (Auto) % Neut # (Auto) (1.4-6.5) K/uL Lymph # (Auto) (1.2-3.4) K/uL [place] # (Auto) (0.11-0.59) K/uL Eos # (Auto) (0-0.5) K/uL Baso # (Auto) (0-0.2) K/uL Immature Gran # (Auto) (0.00-0.02) K/uL Sodium (136-145) mmol/L Potassium (3.5-5.1) mmol/L Chloride (98-107) mmol/L Carbon Dioxide (21-32) mmol/L Anion Gap (3-11) BUN (7-18) mg/dl Creatinine (0.6-1.4) mg/dl Est Cr Clr Drug Dosing ml/min Est GFR ( Amer) ml/min Est GFR (Non-Af Amer) ml/min BUN/Creatinine Ratio (10-20) Glucose (70-99) mg/dl Estimat Average Glucose mg/dl Hemoglobin A1c (4.5-5.6) % Calcium (8.5-10.1) mg/dl SARS-CoV-2, RNA, NAAT (NEGATIVE) Blood Type O Negative Antibody Screen NEGATIVE Crossmatch See Detail Medications Administered Current Inpatient Medications Acetaminophen (Acetaminophen 500 Mg Tab) 1,000 mg PO Q8H PRN PRN Reason: MILD Pain Scale 1,2,3 & Pre PT Stop: 11/02/21 15:56 Al Hydrox/Mg Hydrox/Simethicone (Aluminum/Magnesium Susp 30 Ml Udc) 30 ml PO Q6H PRN PRN Reason: Dyspepsia Stop: 11/02/21 15:56 Alprazolam (Alprazolam 0.5 Mg Tablet) 0.5 mg PO HS HUSSAIN Stop: 11/02/21 20:59 Last Admin: 10/03/21 21:02 Dose: 0.5 mg Documented by: Atorvastatin Calcium (Atorvastatin 40 Mg Tab) 80 mg PO [facility] Stop: 11/02/21 20:59 Last Admin: 10/03/21 20:59 Dose: 80 mg Documented by: Bisacodyl (Bisacodyl 10 Mg Supp) 10 mg ND DAILY PRN PRN Reason: Constipation Stop: 11/02/21 15:56 Citalopram Hydrobromide (Citalopram 20 Mg Tab) 20 mg PO [facility] Stop: 11/02/21 20:59 Last Admin: 10/03/21 20:59 Dose: 20 mg Documented by: Diphenhydramine HCl (Diphenhydramine Capsule 25 Mg Cap) 25 mg PO Q6H PRN PRN Reason: Allergic Rhinitis/Insomnia Stop: 11/02/21 15:56 Famotidine (Famotidine 20 Mg Tab) 20 mg PO Q12H PRN PRN Reason: Dyspepsia Stop: 11/02/21 15:56 Hydromorphone HCl (Hydromorphone Inj 0.5 Mg/0.5 Ml Syr) 0.5 mg IV Q3H PRN PRN Reason: MODERATE Pain (Scale 4,5,6) & Pre PT Stop: 10/17/21 15:56 Last Admin: 10/04/21 02:05 Dose: 0.5 mg Documented by: Hydromorphone HCl (Hydromorphone Inj 1 Mg/Ml Syringe) 1 mg IV Q3H PRN PRN Reason: SEVERE Pain (Scale 7,8,9,10) Stop: 10/17/21 15:56 Hydroxyzine HCl (Hydroxyzine Hcl 25 Mg Tab) 25 mg PO Q8H PRN PRN Reason: Anxiety Stop: 11/02/21 15:56 Promethazine HCl 12.5 mg/ (Sodium Chloride) 50.5 mls @ 202 mls/hr IV Q6H PRN PRN Reason: Nausea &/or Vomiting Stop: 11/02/21 15:56 Acetaminophen (Ofirmev) 1,000 mg in 100 mls @ 400 mls/hr IV Q8H PRN PRN Reason: Pain Rating 1-3 & Pre PT Stop: 10/06/21 15:56 Last Infusion: 10/03/21 17:06 Dose: Infused Documented by: Lorazepam (Ativan) 0.5 mg in 1 mls @ 1 mls/min IV Q8H PRN PRN Reason: Sedation/Anxiety Stop: 11/02/21 15:56 Dexamethasone 6 mg/ Syringe 1.5 mls @ 1 mls/min IV DAILY [facility] Stop: 10/06/21 09:02 Influenza Virus Vaccine Quadrival (Do Not Administer Flu Vaccine) 1 ea N/A PRN PRN PRN Reason: Notification Stop: 11/02/21 15:56 Lisinopril (Lisinopril 10 Mg Tab) 10 mg PO HS [facility] Stop: 11/02/21 20:59 Lorazepam (Lorazepam 0.5 Mg Tab) 0.5 mg PO Q8H PRN PRN Reason: Sedation/Anxiety Stop: 11/02/21 15:56 Magnesium Hydroxide (Magnesium Hydroxide Susp 30 Ml Udc) 30 ml PO Q24H PRN PRN Reason: Constipation Stop: 11/02/21 15:56 Metoclopramide HCl (Metoclopramide Hcl Inj 5 Mg/Ml 2 Ml Vial) 10 mg IV Q6H PRN PRN Reason: Nausea &/or Vomiting Stop: 11/02/21 15:56 Mirtazapine (Mirtazapine Tab 15 Mg Tab) 30 mg PO HS [facility] Stop: 11/02/21 20:59 Last Admin: 10/03/21 20:59 Dose: 30 mg Documented by: Multivitamins (Multivitamin Tab) 1 tab PO QAM [facility] Stop: 11/03/21 08:59 Naloxone HCl (Naloxone Hcl 0.4 Mg/1 Ml Vial/Carp) 0.1 mg IV Q5M PRN PRN Reason: Oversedation/Resp depression Stop: 11/02/21 15:56 Ondansetron HCl (Ondansetron Inj 2 Mg/Ml 2 Ml Vial) 4 mg IV Q6H PRN PRN Reason: Nausea &/or Vomiting Stop: 11/02/21 15:56 Ondansetron HCl (Ondansetron 4 Mg Od Tab) 4 mg PO Q6H PRN PRN Reason: Nausea Stop: 11/02/21 15:56 Oxycodone HCl (Oxycodone Hcl Ir 5 Mg Tab (Immediate Release)) 5 - 10 mg PO Q4H PRN PRN Reason: Pain & Pre PT Stop: 10/17/21 15:56 Last Admin: 10/03/21 21:02 Dose: 5 mg Documented by: Pneumococcal Polyvalent Vaccine (Do Not Administer Pneumococcal Vaccine) 1 ea N/A PRN PRN PRN Reason: Notification Stop: 11/02/21 15:56 Polyethylene Glycol (Polyethylene (Miralax) 17 Gm Pack) 17 gm PO Q6 [facility] Stop: 11/03/21 05:59 Last Admin: 10/04/21 06:00 Dose: Not Given Documented by: Ropinirole HCl (Ropinirole Hcl 2 Mg Tablet) 2 mg PO HS [facility] Stop: 11/02/21 20:59 Last Admin: 10/03/21 20:59 Dose: 2 mg Documented by: Senna/Docusate Sodium (Docusate Sodium/Senna 50/8.6mg Tab) 2 tab PO [facility] Stop: 11/02/21 20:59 Last Admin: 10/03/21 20:59 Dose: 2 tab Documented by: Sodium Biphosphate/Sodium Phosphate (Sod Phosphate/Sod Biphosphate Enema 132 Ml Btl) 132 ml ND ONE PRN PRN Reason: Constipation Stop: 11/02/21 15:56 Tamsulosin HCl (Tamsulosin Hcl 0.4 Mg Cap) 0.4 mg PO [facility] Stop: 11/02/21 20:59 Last Admin: 10/03/21 20:59 Dose: 0.4 mg Documented by: Tramadol HCl (Tramadol Hcl 50 Mg Tablet) 50 - 100 mg PO Q4H PRN PRN Reason: Moderate-Severe pain & Pre PT Stop: 11/02/21 15:56
[2021-10-04] MEDS ORDERED: NON-FORMULARY MEDICATION (Coq10 (Ubiquinol) 200 mg Capsule) PO SCH (09:00)
[2021-10-04] MEDS: MULTIVITAMIN TAB PO SCH (09:38)
[2021-10-04] MEDS: dexAMETHasone 6 MG in SYRINGE 0 ML IV SCH (09:39)
[2021-10-04] MEDS: oxyCODONE HCL IR 5 MG TAB (IMMEDIATE RELEASE) PO PRN ×4 (09:50→22:13)
--- NOTE | 2021-10-04 10:01 | Orthopedic Progress Note ---
Date of Service October 04, 2021 Assessment & Plan (1) Neurogenic claudication due to lumbar spinal stenosis: Plan: This time we will continue physical therapy monitor his FABIANA operatively discharge home this weekend. Admission and Anticipated Discharge Date Admission Date: October 03, 2021 Subjective Patient's back pain is controlled leg symptoms markedly improved Physical Exam Physical Exam: Patient is in the chair at the bedside. Is good strength testing. Appears comfortable. Results & Data ([facility]) Vital Signs (Past 12 Hours) Vital Signs Temp Pulse Resp BP Pulse Ox 10/04/21 08:54 36.9 C 100 H 17 103/63 92 10/04/21 02:10 36.6 C 93 H 14 108/77 93
[2021-10-04] MEDS: ALPRAZolam 0.5 MG TABLET PO SCH (21:31)
[2021-10-04] MEDS: MIRTAZAPINE TAB 15 MG TAB PO SCH (21:31)
[2021-10-04] MEDS: ATORVASTATIN 40 MG TAB PO SCH (21:31)
[2021-10-04] MEDS: rOPINIRole HCL 2 MG TABLET PO SCH (21:32)
[2021-10-04] MEDS: TAMSULOSIN HCL 0.4 MG CAP PO SCH (21:32)
[2021-10-04] MEDS: CITALOPRAM 20 MG TAB PO SCH (21:32)
[2021-10-04] MEDS: DOCUSATE SODIUM/SENNA 50/8.6MG TAB PO SCH (21:40)
[2021-10-05] MEDS: POLYETHYLENE (MIRALAX) 17 GM PACK PO SCH ×5 (00:01→23:22)
--- NOTE | 2021-10-05 07:56 | Hospitalist Progress Note ---
Date of Service October 05, 2021 Assessment & Plan (1) Neurogenic claudication due to lumbar spinal stenosis: (2) Hyperlipidemia: Plan: This is a 70-year-old male who has significant past medical history of HTN, HLD, RLS, BPH, depression with anxiety who presented for elective lumbar procedure by Dr. Elizondo. Actual Procedures #1 lumbar decompression bilateral medial facetectomies and foraminotomies L1-L2, L2-L3, L3-L4, L4-5 and L5-S1. #2 posterior spinal fusion L1-S1. #3 placed posterior segmental instrumentation L1-S1. #4 interbody fusion L3-L4 L4-L5 per #5 placement peek cage 12 x 26 mm at L3-L4 and 10 x 26 mm at L4-L5. #6 placement locally harvested morselized autograft in the posterior gutters. #7 placement infuse collagen sponge, and master graft in the posterior lateral gutters and I factor interbody space. POD# 2 tolerated procedure well Mild hypotension post-op, resolved w/ small NS bolus pain/wound management per ortho activity and therapy as directed by ortho encourage incentive spirometry, wean O2 as able monitor hgb (pre op 14.9) given EBL check cbc, bmp now Acute blood loss anemia (post-op)/dilutional Expected No need for blood transfusion Pt denies any symptoms such as dizziness, shortness of breath, chest pain Current hemoglobin 10 (down from 11 yesterday), pre-op above 14 Continue to monitor H&H HYPOTENSION/TACHYCARDIA post op Pt BP on lower side with mild tachycardia - may be hypovolemia in setting of blood loss, poor intake vs narcotics, he is otherwise asymptomatic. Will check cbc, bmp. resolved w/ small NS bolus HTN post op BP on lower side s/p pain meds hold lisinopril resume when able HLD continue statin DEPRESSION WITH ANXIETY continue xanax, celexa RLS continue requip BPH continue flomax DVT ppx: SCD/TEDS per ortho Dispo: per surgery PCP: LEIGHA Cruz FULL CODE Thank you for this consultation. We will follow the patient with you during their hospital stay. You can reach a member of the [facility] Hospitalist Team 04/05 via hospitalist role on tiger text. Admission and Anticipated Discharge Date Admission Date: October 03, 2021 Subjective Patient seen in follow-up after lumbar surgery Currently sitting up in bed, in no acute distress Reports that he has been ambulating in hallways without much difficulty Denies any chest pain, shortness of breath, fever chills, abdominal pain, nausea or vomiting Review of Systems Review of Systems: All systems reviewed & are unremarkable except as noted in Subjective Physical Exam Physical Exam: Constitutional: WD/WN, M, in NAD Head: Normocephalic, Atraumatic Eyes: PERRL, EOMI, conjunctivae normal, anicteric sclerae ENMT: external ear and nose normal, oropharynx normal Neck: normal visual inspection Respiratory: normal respiratory effort, lungs clear to auscultation, no wheeze, rales, rhonchi Cardiovascular: RRR, no murmur, no edema Vessels: no JVD or carotid bruit Chest: normal inspection of chest Abdomen: normal bowel sounds, soft, nontender Musculoskeletal: moves extremities w/o difficulty, El drain with serosanguineous drainage Skin: no rashes, warm and dry normal turgor Neurologic: PERRL, EOMI, no face palsy, no dysarthria, moves all extremities, no sensory loss noted Psychiatric: A+Ox3, euthymic affect Results & Data Results & Data ([facility]) Vital Signs (Past 12 Hours) Vital Signs Temp Pulse Resp BP Pulse Ox 10/05/21 05:52 36.4 C L 84 16 120/68 93 10/04/21 22:42 37 C 89 16 123/66 94 Laboratory Results 10/05/21 10/05/21 Range/Units 08:56 08:56 Hgb 10.0 L (14.0-18.0) g/dL Hct 29.3 L (42-52) % Sodium 136 (136-145) mmol/L Potassium 4.0 (3.5-5.1) mmol/L Chloride 106 (98-107) mmol/L Carbon Dioxide 24 (21-32) mmol/L Anion Gap 6.0 (3-11) BUN 23 H (7-18) mg/dl Creatinine 1.28 (0.6-1.4) mg/dl Est Cr Clr Drug Dosing 53.7 ml/min Est GFR ( Amer) 65.3 ml/min Est GFR (Non-Af Amer) 56.3 ml/min BUN/Creatinine Ratio 17.7 (10-20) Glucose 128 H (70-99) mg/dl Calcium 8.7 (8.5-10.1) mg/dl Medications Administered Current Inpatient Medications Acetaminophen (Acetaminophen 500 Mg Tab) 1,000 mg PO Q8H PRN PRN Reason: MILD Pain Scale 1,2,3 & Pre PT Stop: 11/02/21 15:56 Al Hydrox/Mg Hydrox/Simethicone (Aluminum/Magnesium Susp 30 Ml Udc) 30 ml PO Q6H PRN PRN Reason: Dyspepsia Stop: 11/02/21 15:56 Alprazolam (Alprazolam 0.5 Mg Tablet) 0.5 mg PO [facility] Stop: 11/02/21 20:59 Last Admin: 10/04/21 21:31 Dose: 0.5 mg Documented by: Atorvastatin Calcium (Atorvastatin 40 Mg Tab) 80 mg PO [facility] Stop: 11/02/21 20:59 Last Admin: 10/04/21 21:31 Dose: 80 mg Documented by: Bisacodyl (Bisacodyl 10 Mg Supp) 10 mg DC DAILY PRN PRN Reason: Constipation Stop: 11/02/21 15:56 Citalopram Hydrobromide (Citalopram 20 Mg Tab) 20 mg PO [facility] Stop: 11/02/21 20:59 Last Admin: 10/04/21 21:32 Dose: 20 mg Documented by: Diphenhydramine HCl (Diphenhydramine Capsule 25 Mg Cap) 25 mg PO Q6H PRN PRN Reason: Allergic Rhinitis/Insomnia Stop: 11/02/21 15:56 Famotidine (Famotidine 20 Mg Tab) 20 mg PO Q12H PRN PRN Reason: Dyspepsia Stop: 11/02/21 15:56 Hydromorphone HCl (Hydromorphone Inj 0.5 Mg/0.5 Ml Syr) 0.5 mg IV Q3H PRN PRN Reason: MODERATE Pain (Scale 4,5,6) & Pre PT Stop: 10/17/21 15:56 Last Admin: 10/04/21 02:05 Dose: 0.5 mg Documented by: Hydromorphone HCl (Hydromorphone Inj 1 Mg/Ml Syringe) 1 mg IV Q3H PRN PRN Reason: SEVERE Pain (Scale 7,8,9,10) Stop: 10/17/21 15:56 Hydroxyzine HCl (Hydroxyzine Hcl 25 Mg Tab) 25 mg PO Q8H PRN PRN Reason: Anxiety Stop: 11/02/21 15:56 Promethazine HCl 12.5 mg/ (Sodium Chloride) 50.5 mls @ 202 mls/hr IV Q6H PRN PRN Reason: Nausea &/or Vomiting Stop: 11/02/21 15:56 Acetaminophen (Ofirmev) 1,000 mg in 100 mls @ 400 mls/hr IV Q8H PRN PRN Reason: Pain Rating 1-3 & Pre PT Stop: 10/06/21 15:56 Last Infusion: 10/03/21 17:06 Dose: Infused Documented by: Lorazepam (Ativan) 0.5 mg in 1 mls @ 1 mls/min IV Q8H PRN PRN Reason: Sedation/Anxiety Stop: 11/02/21 15:56 Dexamethasone 6 mg/ Syringe 1.5 mls @ 1 mls/min IV DAILY [facility] Stop: 10/06/21 09:02 Last Admin: 10/04/21 09:39 Dose: 1 mls/min Documented by: Influenza Virus Vaccine Quadrival (Do Not Administer Flu Vaccine) 1 ea N/A PRN PRN PRN Reason: Notification Stop: 11/02/21 15:56 Lisinopril (Lisinopril 10 Mg Tab) 10 mg PO HS [facility] Stop: 11/02/21 20:59 Lorazepam (Lorazepam 0.5 Mg Tab) 0.5 mg PO Q8H PRN PRN Reason: Sedation/Anxiety Stop: 11/02/21 15:56 Magnesium Hydroxide (Magnesium Hydroxide Susp 30 Ml Udc) 30 ml PO Q24H PRN PRN Reason: Constipation Stop: 11/02/21 15:56 Metoclopramide HCl (Metoclopramide Hcl Inj 5 Mg/Ml 2 Ml Vial) 10 mg IV Q6H PRN PRN Reason: Nausea &/or Vomiting Stop: 11/02/21 15:56 Mirtazapine (Mirtazapine Tab 15 Mg Tab) 30 mg PO HS [facility] Stop: 11/02/21 20:59 Last Admin: 10/04/21 21:31 Dose: 30 mg Documented by: Multivitamins ([facility]itamin Tab) [facility] Stop: 11/03/21 08:59 Last Admin: 10/04/21 09:38 Dose: 1 tab Documented by: Naloxone HCl (Naloxone Hcl 0.4 Mg/1 Ml Vial/Carp) 0.1 mg IV Q5M PRN PRN Reason: Oversedation/Resp depression Stop: 11/02/21 15:56 Ondansetron HCl (Ondansetron Inj 2 Mg/Ml 2 Ml Vial) 4 mg IV Q6H PRN PRN Reason: Nausea &/or Vomiting Stop: 11/02/21 15:56 Ondansetron HCl (Ondansetron 4 Mg Od Tab) 4 mg PO Q6H PRN PRN Reason: Nausea Stop: 11/02/21 15:56 Oxycodone HCl (Oxycodone Hcl Ir 5 Mg Tab (Immediate Release)) 5 - 10 mg PO Q4H PRN PRN Reason: Pain & Pre PT Stop: 10/17/21 15:56 Last Admin: 10/04/21 22:13 Dose: 10 mg Documented by: Pneumococcal Polyvalent Vaccine (Do Not Administer Pneumococcal Vaccine) 1 ea N/A PRN PRN PRN Reason: Notification Stop: 11/02/21 15:56 Polyethylene Glycol (Polyethylene (Miralax) 17 Gm Pack) 17 gm PO Q6 [facility] Stop: 11/03/21 05:59 Last Admin: 10/05/21 05:38 Dose: 17 gm Documented by: Ropinirole HCl (Ropinirole Hcl 2 Mg Tablet) 2 mg PO [facility] Stop: 11/02/21 20:59 Last Admin: 10/04/21 21:32 Dose: 2 mg Documented by: Senna/Docusate Sodium (Docusate Sodium/Senna 50/8.6mg Tab) 2 tab PO [facility] Stop: 11/02/21 20:59 Last Admin: 10/04/21 21:40 Dose: 2 tab Documented by: Sodium Biphosphate/Sodium Phosphate (Sod Phosphate/Sod Biphosphate Enema 132 Ml Btl) 132 ml DC ONE PRN PRN Reason: Constipation Stop: 11/02/21 15:56 Tamsulosin HCl (Tamsulosin Hcl 0.4 Mg Cap) 0.4 mg PO [facility] Stop: 11/02/21 20:59 Last Admin: 10/04/21 21:32 Dose: 0.4 mg Documented by: Tramadol HCl (Tramadol Hcl 50 Mg Tablet) 50 - 100 mg PO Q4H PRN PRN Reason: Moderate-Severe pain & Pre PT Stop: 11/02/21 15:56
[2021-10-05] MEDS: MULTIVITAMIN TAB PO SCH (08:18)
[2021-10-05] MEDS: dexAMETHasone 6 MG in SYRINGE 0 ML IV SCH (08:18)
[2021-10-05 09:03] LABS: Hematocrit (blood only) 29.3 % (42-52)
[2021-10-05 09:21] LABS: BUN Creatinine Ratio 17.7 (10-20); Calcium 8.7 mg/dl (8.5-10.1); Creatinine Clr Calc Pharmacy 53.7 ml/min; Est GFR (African American) 65.3 ml/min; Est GFR (Non-African American) 56.3 ml/min
--- NOTE | 2021-10-05 10:35 | Orthopedic Progress Note ---
Date of Service October 05, 2021 Assessment & Plan (1) Neurogenic claudication due to lumbar spinal stenosis: Plan: At this time continue physical therapy monitor his FABIANA operatively discharge home tomorrow. Admission and Anticipated Discharge Date Admission Date: October 03, 2021 Subjective Patient's back pain is controlled leg symptoms improved Physical Exam Physical Exam: On exam patient is good strength testing appears comfortable. Results & Data ([facility]) Vital Signs (Past 12 Hours) Vital Signs Temp Pulse Resp BP Pulse Ox 10/05/21 05:52 36.4 C L 84 16 120/68 93 10/04/21 22:42 37 C 89 16 123/66 94
[2021-10-05] MEDS: ALPRAZolam 0.5 MG TABLET PO SCH (20:38)
[2021-10-05] MEDS: MIRTAZAPINE TAB 15 MG TAB PO SCH (20:39)
[2021-10-05] MEDS: ATORVASTATIN 40 MG TAB PO SCH (20:39)
[2021-10-05] MEDS: CITALOPRAM 20 MG TAB PO SCH (20:39)
[2021-10-05] MEDS: DOCUSATE SODIUM/SENNA 50/8.6MG TAB PO SCH (20:39)
[2021-10-05] MEDS: TAMSULOSIN HCL 0.4 MG CAP PO SCH (20:39)
[2021-10-05] MEDS: rOPINIRole HCL 2 MG TABLET PO SCH (20:39)
[2021-10-06] MEDS: POLYETHYLENE (MIRALAX) 17 GM PACK PO SCH (04:49)
--- NOTE | 2021-10-06 07:31 | Hospitalist Progress Note ---
Date of Service October 06, 2021 Assessment & Plan (1) Neurogenic claudication due to lumbar spinal stenosis: (2) Hyperlipidemia: Plan: This is a 70-year-old male who has significant past medical history of HTN, HLD, RLS, BPH, depression with anxiety who presented for elective lumbar procedure by Dr. Elizondo. Actual Procedures #1 lumbar decompression bilateral medial facetectomies and foraminotomies L1-L2, L2-L3, L3-L4, L4-5 and L5-S1. #2 posterior spinal fusion L1-S1. #3 placed posterior segmental instrumentation L1-S1. #4 interbody fusion L3-L4 L4-L5 per #5 placement peek cage 12 x 26 mm at L3-L4 and 10 x 26 mm at L4-L5. #6 placement locally harvested morselized autograft in the posterior gutters. #7 placement infuse collagen sponge, and master graft in the posterior lateral gutters and I factor interbody space. POD# 3 tolerated procedure well Mild hypotension post-op, resolved w/ small NS bolus pain/wound management per ortho activity and therapy as directed by ortho encourage incentive spirometry, wean O2 as able monitor hgb (pre op 14.9) given EBL check cbc, bmp now Acute blood loss anemia (post-op)/dilutional Expected No need for blood transfusion Pt denies any symptoms such as dizziness, shortness of breath, chest pain Current hemoglobin 9.5 (drifting down from 10 yesterday and 11 day before yesterday), pre-op above 14 iron supplement started Continue to monitor H&H HYPOTENSION/TACHYCARDIA post op Pt BP on lower side with mild tachycardia - may be hypovolemia in setting of blood loss, poor intake vs narcotics, he is otherwise asymptomatic. Will check cbc, bmp. resolved w/ small NS bolus HTN post op BP on lower side s/p pain meds hold lisinopril resume when able HLD continue statin DEPRESSION WITH ANXIETY continue xanax, celexa RLS continue requip BPH continue flomax DVT ppx: SCD/TEDS per ortho Dispo: per surgery PCP: LEIGHA Cruz FULL CODE Thank you for this consultation. We will follow the patient with you during their hospital stay. You can reach a member of the [facility] Hospitalist Team 04/05 via hospitalist role on tiger text. Admission and Anticipated Discharge Date Admission Date: October 03, 2021 Subjective Patient seen in follow-up after lumbar surgery Currently sitting up in bed, in no acute distress Reports that he has been ambulating in hallways without much difficulty Denies any chest pain, shortness of breath, fever chills, abdominal pain, nausea or vomiting Started iron supplement Physical Exam Physical Exam: Constitutional: WD/WN, M, in NAD Head: Normocephalic, Atraumatic Eyes: PERRL, EOMI, conjunctivae normal, anicteric sclerae ENMT: external ear and nose normal, oropharynx normal Neck: normal visual inspection Respiratory: normal respiratory effort, lungs clear to auscultation, no wheeze, rales, rhonchi Cardiovascular: RRR, no murmur, no edema Vessels: no JVD or carotid bruit Chest: normal inspection of chest Abdomen: normal bowel sounds, soft, nontender Musculoskeletal: moves extremities w/o difficulty, El drain with serosanguineous drainage Skin: no rashes, warm and dry normal turgor Neurologic: PERRL, EOMI, no face palsy, no dysarthria, moves all extremities, no sensory loss noted Psychiatric: A+Ox3, euthymic affect Results & Data Results & Data ([facility]) Vital Signs (Past 12 Hours) Vital Signs Temp Pulse Resp BP Pulse Ox 10/06/21 06:00 36.6 C 77 16 113/69 93 10/05/21 22:20 36.8 C 87 16 128/71 93 Laboratory Results 10/06/21 10/06/21 10/05/21 Range/Units 06:48 06:48 08:56 Hgb 9.5 L (14.0-18.0) g/dL Hct 28.3 L (42-52) % Sodium 139 136 (136-145) mmol/L Potassium 3.9 4.0 (3.5-5.1) mmol/L Chloride 108 H 106 (98-107) mmol/L Carbon Dioxide 25 24 (21-32) mmol/L Anion Gap 6.0 6.0 (3-11) BUN 21 H 23 H (7-18) mg/dl Creatinine 1.10 1.28 (0.6-1.4) mg/dl Est Cr Clr Drug Dosing 62.5 53.7 ml/min Est GFR ( Amer) 78.4 65.3 ml/min Est GFR (Non-Af Amer) 67.7 56.3 ml/min BUN/Creatinine Ratio 19.0 17.7 (10-20) Glucose 100 H 128 H (70-99) mg/dl Calcium 8.7 8.7 (8.5-10.1) mg/dl Medications Administered Current Inpatient Medications Acetaminophen (Acetaminophen 500 Mg Tab) 1,000 mg PO Q8H PRN PRN Reason: MILD Pain Scale 1,2,3 & Pre PT Stop: 11/02/21 15:56 Last Admin: 10/05/21 08:17 Dose: 1,000 mg Documented by: Al Hydrox/Mg Hydrox/Simethicone (Aluminum/Magnesium Susp 30 Ml Udc) 30 ml PO Q6H PRN PRN Reason: Dyspepsia Stop: 11/02/21 15:56 Alprazolam (Alprazolam 0.5 Mg Tablet) 0.5 mg PO [facility] Stop: 11/02/21 20:59 Last Admin: 10/05/21 20:38 Dose: 0.5 mg Documented by: Atorvastatin Calcium (Atorvastatin 40 Mg Tab) 80 mg PO [facility] Stop: 11/02/21 20:59 Last Admin: 10/05/21 20:39 Dose: 80 mg Documented by: Bisacodyl (Bisacodyl 10 Mg Supp) 10 mg [place] DAILY PRN PRN Reason: Constipation Stop: 11/02/21 15:56 Citalopram Hydrobromide (Citalopram 20 Mg Tab) 20 mg PO [facility] Stop: 11/02/21 20:59 Last Admin: 10/05/21 20:39 Dose: 20 mg Documented by: Diphenhydramine HCl (Diphenhydramine Capsule 25 Mg Cap) 25 mg PO Q6H PRN PRN Reason: Allergic Rhinitis/Insomnia Stop: 11/02/21 15:56 Famotidine (Famotidine 20 Mg Tab) 20 mg PO Q12H PRN PRN Reason: Dyspepsia Stop: 11/02/21 15:56 Ferrous Sulfate (Ferrous Sulfate 325 Mg Tab) [facility] Stop: 11/05/21 07:59 Hydromorphone HCl (Hydromorphone Inj 0.5 Mg/0.5 Ml Syr) 0.5 mg IV Q3H PRN PRN Reason: MODERATE Pain (Scale 4,5,6) & Pre PT Stop: 10/17/21 15:56 Last Admin: 10/04/21 02:05 Dose: 0.5 mg Documented by: Hydromorphone HCl (Hydromorphone Inj 1 Mg/Ml Syringe) 1 mg IV Q3H PRN PRN Reason: SEVERE Pain (Scale 7,8,9,10) Stop: 10/17/21 15:56 Hydroxyzine HCl (Hydroxyzine Hcl 25 Mg Tab) 25 mg PO Q8H PRN PRN Reason: Anxiety Stop: 11/02/21 15:56 Promethazine HCl 12.5 mg/ (Sodium Chloride) 50.5 mls @ 202 mls/hr IV Q6H PRN PRN Reason: Nausea &/or Vomiting Stop: 11/02/21 15:56 Acetaminophen (Ofirmev) 1,000 mg in 100 mls @ 400 mls/hr IV Q8H PRN PRN Reason: Pain Rating 1-3 & Pre PT Stop: 10/06/21 15:56 Last Infusion: 10/03/21 17:06 Dose: Infused Documented by: Lorazepam (Ativan) 0.5 mg in 1 mls @ 1 mls/min IV Q8H PRN PRN Reason: Sedation/Anxiety Stop: 11/02/21 15:56 Dexamethasone 6 mg/ Syringe 1.5 mls @ 1 mls/min IV DAILY [facility] Stop: 10/06/21 09:02 Last Admin: 10/05/21 08:18 Dose: 1 mls/min Documented by: Influenza Virus Vaccine Quadrival (Do Not Administer Flu Vaccine) 1 ea N/A PRN PRN PRN Reason: Notification Stop: 11/02/21 15:56 Lisinopril (Lisinopril 10 Mg Tab) 10 mg PO HS [facility] Stop: 11/02/21 20:59 Lorazepam (Lorazepam 0.5 Mg Tab) 0.5 mg PO Q8H PRN PRN Reason: Sedation/Anxiety Stop: 11/02/21 15:56 Magnesium Hydroxide (Magnesium Hydroxide Susp 30 Ml Udc) 30 ml PO Q24H PRN PRN Reason: Constipation Stop: 11/02/21 15:56 Metoclopramide HCl (Metoclopramide Hcl Inj 5 Mg/Ml 2 Ml Vial) 10 mg IV Q6H PRN PRN Reason: Nausea &/or Vomiting Stop: 11/02/21 15:56 Mirtazapine (Mirtazapine Tab 15 Mg Tab) 30 mg PO [facility] Stop: 11/02/21 20:59 Last Admin: 10/05/21 20:39 Dose: 30 mg Documented by: Multivitamins (Multivitamin Tab) 1 tab PO QAM [facility] Stop: 11/03/21 08:59 Last Admin: 10/05/21 08:18 Dose: 1 tab Documented by: Naloxone HCl (Naloxone Hcl 0.4 Mg/1 Ml Vial/Carp) 0.1 mg IV Q5M PRN PRN Reason: Oversedation/Resp depression Stop: 11/02/21 15:56 Ondansetron HCl (Ondansetron Inj 2 Mg/Ml 2 Ml Vial) 4 mg IV Q6H PRN PRN Reason: Nausea &/or Vomiting Stop: 11/02/21 15:56 Ondansetron HCl (Ondansetron 4 Mg Od Tab) 4 mg PO Q6H PRN PRN Reason: Nausea Stop: 11/02/21 15:56 Oxycodone HCl (Oxycodone Hcl Ir 5 Mg Tab (Immediate Release)) 5 - 10 mg PO Q4H PRN PRN Reason: Pain & Pre PT Stop: 10/17/21 15:56 Last Admin: 10/04/21 22:13 Dose: 10 mg Documented by: Pneumococcal Polyvalent Vaccine (Do Not Administer Pneumococcal Vaccine) 1 ea N/A PRN PRN PRN Reason: Notification Stop: 11/02/21 15:56 Polyethylene Glycol (Polyethylene (Miralax) 17 Gm Pack) 17 gm PO Q6 [facility] Stop: 11/03/21 05:59 Last Admin: 10/06/21 04:49 Dose: Not Given Documented by: Ropinirole HCl (Ropinirole Hcl 2 Mg Tablet) 2 mg PO [facility] Stop: 11/02/21 20:59 Last Admin: 10/05/21 20:39 Dose: 2 mg Documented by: Senna/Docusate Sodium (Docusate Sodium/Senna 50/8.6mg Tab) 2 tab PO [facility] Stop: 11/02/21 20:59 Last Admin: 10/05/21 20:39 Dose: Not Given Documented by: Sodium Biphosphate/Sodium Phosphate (Sod Phosphate/Sod Biphosphate Enema 132 Ml Btl) 132 ml OK ONE PRN PRN Reason: Constipation Stop: 11/02/21 15:56 Tamsulosin HCl (Tamsulosin Hcl 0.4 Mg Cap) 0.4 mg PO HS [facility] Stop: 11/02/21 20:59 Last Admin: 10/05/21 20:39 Dose: 0.4 mg Documented by: Tramadol HCl (Tramadol Hcl 50 Mg Tablet) 50 - 100 mg PO Q4H PRN PRN Reason: Moderate-Severe pain & Pre PT Stop: 11/02/21 15:56 Last Admin: 10/05/21 18:11 Dose: 50 mg Documented by:
[2021-10-06] MEDS: MULTIVITAMIN TAB PO SCH (07:54)
[2021-10-06] MEDS: dexAMETHasone 6 MG in SYRINGE 0 ML IV SCH (07:55)
[2021-10-06 08:00] LABS: Hematocrit (blood only) 28.3 % (42-52); Hemoglobin 9.5 g/dL (14.0-18.0)
[2021-10-06] MEDS ORDERED: FERROUS SULFATE 325 MG TAB PO SCH (08:00)
[2021-10-06 08:23] LABS: Calcium 8.7 mg/dl (8.5-10.1); Creatinine Clr Calc Pharmacy 62.5 ml/min; Est GFR (African American) 78.4 ml/min; Est GFR (Non-African American) 67.7 ml/min; Potassium 3.9 mmol/L (3.5-5.1)
--- NOTE | 2021-10-06 10:14 | Discharge Summary ---
Date of Service October 06, 2021 Admission HPI Per Admitting Provider This is a 70-year-old male who presents with chronic system back and right leg pain. Failing course of nonoperative care is here for surgical invention. Principal Diagnosis Lumbar spinal stenosis with neurogenic claudication Discharge Data Allergies Allergy/AdvReac Type Severity Reaction Status Date / Time No Known Allergies Allergy Verified 10/03/21 08:42 Consultations 10/03/21 15:57 Consult Hospitalist Routine Procedures Performed Operation Date: 10/03/21 10:05 Actual Procedures p L2-S1 Decompression and Fusion, Spinal Cord Monitoring(Not Applicable) - Rex Elizondo DO Ordered Studies 10/03/21 11:55 [place] lumbar spine 2-3V Routine Hospital Course (1) Neurogenic claudication due to lumbar spinal stenosis: Patient 1 multilevel lumbar decompression fusion tolerated this well was taken to the orthopedic for postoperative. Postop day 1 he was up and ambulating progressed postop day #2 on postop day 3 FABIANA drain decreased probably. Pain well controlled. Excellent strength testing. Socially discharged home. Discharge orders instructions from the chart for further review. Total Time Total Time Spent Total Time Spent (In Minutes): 20 minutes Discharge Plan Discharge Items Patient Disposition: Home - Self-Care Reason For Visit: Spinal Stenosis, Lumbar Region with Neurogenic Cla Discharge Diagnosis: Lumbar spinal stenosis with neurogenic claudication Activity: As commented below Non-emergency contact: Primary Care Provider Call non-emergency contact if: you have any medication questions Follow-up/Referrals: Renuka Khoury M.D. [Primary Care Provider] - Diet: Regular Addtl Attending Provider Instructions: ACTIVITY RECOMMENDATIONS: SELF CARE INSTRUCTIONS AFTER THORACIC/LUMBAR FUSIONS 1. You may walk to your tolerance. It is good exercise for your legs and back. Expect some back and intermittent leg aches and pains. 2. You may perform "counter-top" level activities (make a sandwich, henri with a project, etc.). 3. No bending or lifting of more than 10 pounds or back twisting of any nature (roll like a log when turning in bed). 4. You may ride in a car for 20-30 minutes at a time. No driving until after your first visit with your doctor. 5. Frequent changes of position and restricting sitting to 30 minutes at a time will help limit the amount of back spasms and stiffness you may experience. 6. You may discontinue the use of ambulatory aids (cane, crutches, etc.) once your strength and confidence allow. 7. You may director clinical operations the shower and let water strike your incision when you arrive home at least once daily. Do not take a tub bath, sit in a hot tub or go into a swimming pool until after your first recheck in the office. SPECIAL CARE INSTRUCTIONS: VERY IMPORTANT TO READ AND REVIEW A. Your surgical incision has been closed with a cosmetic suture under the skin that will dissolve in about 6 weeks. In 14 days, you can use a pair of clean scissors and cut the suture that is left outside of the skin at the ends of your incision. 1. The small skin tapes can be removed 7 days after surgery if they have not fallen off by that point. 2. You may keep the wound open to air as much as possible to promote healing after post-op day number 5 unless told otherwise by your doctor. 3. If you think the wound looks like it is becoming infected (redness or worsening drainage) and/or you are experiencing fever, chill or worsening back pain and muscle spasms, contact the office so that we may evaluate you as soon as possible. B. Complications are uncommon, but please contact us if you have any signs or symptoms of: 1. wound infection (fever higher than 102.5 degrees F, redness, separation of wound, drainage, or increasing pain from the incision) 2. blood clots in legs (pain, swelling, redness and warmth in legs) 3. urinary tract infection (fever higher than 102.5 degrees F, burning upon urination or increased frequency of urination) 4. nerve problems (inability to walk on your toes or heels, numbness, loss of bowel or bladder control) 5. any other symptoms that concern you C. Please call the office at if you have any concerns or questions about your operation or recovery. D. No smoking! Smoking drastically decreases the chance of a solid fusion. E. Do not take any anti-inflammatory medications (Indocin, Advil, Motrin, Aspirin, Naprosyn, etc.) as these may inhibit the chance of a solid fusion. Tylenol is okay to take for pain. MANAGING PAIN AFTER SPINAL SURGERY 1. Narcotic medication is intended for short-term use and will be provided for surgical pain. Surgical pain usually lasts for a period of 4-6 weeks. Narcotic medication includes Percocet, Vicodin, Darvocet, Tylenol #3 or Lortab. 2. Longer-term pain is more appropriately treated with non-narcotic medication such as Tylenol ES. 3. Muscle spasm is not appropriately treated with narcotics. Muscle relaxers such as Soma, Flexeril or Skelaxin can be used along with Tylenol ES. 4. Remember that we all live with some "aches and pains". This is not unusual or uncommon after an injury or as we get older. a. Back pain is expected and may include muscle spasms for 4 to 6 weeks after surgery. The pain should gradually improve. If the pain worsens for no apparent reason, please contact the office. b. Intermittent leg pain may also be experienced and should not be concerned about unless it worsens for no apparent reason. If so, please contact the office. 5. We will provide appropriate medication within the normal guidelines of their prescribed use. We will also be very cautious and aware of potential abuse and extended duration of patients' medication needs. a. Pain medications are for your comfort and to assist with sleep and rest so that the tissue can heal. They are not provided in order to return to normal activity and should not be used through the day. To do so or worsening pain at night can result from ongoing tissue damage and development of tolerance to the prescribed medicine. 6. Please allow 2-3 days to process refills. Prescriptions will not be mailed but must be picked up at the office. FOLLOW UP VISIT: Keep your scheduled follow-up appointment. Any questions, please call the office at . Pending Studies at Discharge: No Stand[facility]Alone Forms: [facility] Cessation Medications and DC Order Prescriptions: New tramadol 50 mg tablet 50 mg PO Q6H PRN (Reason: pain, moderate) Qty: 30 RF: 0 oxycodone 5 mg tablet 5 mg PO Q6H PRN (Reason: pain, severe) Qty: 30 RF: 0 Continued multivitamin Tablet 1 tab PO QAM RF: 0 atorvastatin [Lipitor] 80 mg Tablet 80 mg PO HS RF: 0 alprazolam [Xanax] 0.5 mg Tablet 0.5 mg PO HS RF: 0 citalopram [Celexa] 20 mg Tablet 20 mg PO HS RF: 0 ropinirole 2 mg Tablet 2 mg PO HS RF: 0 mirtazapine 30 mg Tablet 30 mg PO HS RF: 0 coQ10 (ubiquinol) 200 mg Capsule 200 mg PO QAM RF: 0 tamsulosin 0.4 mg Capsule 0.4 mg PO HS RF: 0 lisinopril 10 mg Tablet 10 mg PO HS RF: 0 Discharge Orders: Discharge Order (Routine); Ordered 10/06/21 Ordered By: Rex Elizondo Admission Data Admit Date/Time: 10/03/21 09:55 Attending Provider: Rex Elizondo Admit Provider: Rex Elizondo Primary Care Provider: Renuka Khoury Other Providers: Angel Urban
== END 2021-10-06 11:10 | disposition home or self-care (01) | DRG 454 ==
LOC: ASU 08:03 → PACUINP 13:50 → 3N 16:52